=== PATIENT | female | born 1935 | race Caucasian/White ===

== ENCOUNTER → 2016-06-20 | Outpatient (CLI) | payer OTHER | END | disposition home or self-care (01) | LOC: CFH 15:25 | PROVIDERS: ATTEND Internal Medicine | DX: I35.0 Nonrheumatic aortic (valve) stenosis (principal); I07.1 Rheumatic tricuspid insufficiency; I34.0 Nonrheumatic mitral (valve) insufficiency; I37.1 Nonrheumatic pulmonary valve insufficiency; I35.1 Nonrheumatic aortic (valve) insufficiency; I10 Essential (primary) hypertension; E11.9 Type 2 diabetes mellitus without complications | CPT/HCPCS: 93306 ==

== ENCOUNTER 2017-03-25 09:11 | Inpatient (IN) | payer OTHER ==
[~2017-03-25] VITALS: Ht 157.5 cm; Wt 70.2 kg
[2017-03-25] MEDS ORDERED: SODIUM CHLORIDE FLUSH 10ML SYR IVF ONE (10:30)
[2017-03-25] MEDS ORDERED: methylPREDNISolone SOD SUCC 125 MG/2 ML IVP ONE (10:30)
[2017-03-25 10:39] LABS: BASOPHILS # (AUTO) 0.02 x10^3/uL (0-0.1); BASOPHILS % (AUTO) 0 % (0-1); EOSINOPHILS # (AUTO) 0.11 x10^3/uL (0-0.4); EOSINOPHILS % (AUTO) 2 % (1-7); LYMPHOCYTES % (AUTO) 25 % (22-44); MD NO; MEAN CORPUSCULAR HEMOGLOBIN 28.9 pg (27.0-34.8); MEAN CORPUSCULAR HGB CONC 32.8 g/dL (32.4-35.8); MEAN CORPUSCULAR VOLUME 88.3 fL (80-100); MONOCYTES # (AUTO) 0.51 x10^3/uL (0.2-0.8); MONOCYTES % (AUTO) 8 % (2-9); NEUTROPHILS # (AUTO) 4.29 x10^3/uL (1.8-6.8); NEUTROPHILS % (AUTO) 66 % (42-75); PLATELET COUNT 270 x10^3/uL (130-400); RED BLOOD COUNT 3.88 x10^6/uL (3.82-5.3); RED CELL DISTRIBUTION WIDTH 13.1 % (9.6-15.2)
[2017-03-25] MEDS ORDERED: methylPREDNISolone SOD SUCC 125 MG/2 ML ONE (10:40)
[2017-03-25 10:41] LABS: RAPID INFLUENZA A Negative (Negative); RAPID INFLUENZA B Negative (Negative)
[2017-03-25 10:47] LABS: ALANINE AMINOTRANSFERASE 18 U/L (12-78); ALBUMIN 3.3 g/dL (3.4-5.0); ANION GAP 8 mmol/L (5-15); CALCIUM 8.6 mg/dL (8.5-10.1); CHLORIDE 110 mmol/L (98-107); CREATININE 1.11 mg/dL (0.55-1.02)
[2017-03-25 10:51] LABS: ALKALINE PHOSPHATASE 78 U/L (45-117); BILIRUBIN,TOTAL 0.7 mg/dL (0.2-1.0); TOTAL PROTEIN 6.7 g/dL (6.4-8.2); TROPONIN I 0.035 ng/mL (0.000-0.045)
[2017-03-25] MEDS ORDERED: ALBUTEROL/IPRATROPIUM 2.5MG/0.5MG, 3 ML NPPB ONE (12:00)
[2017-03-25] MEDS ORDERED: ALBUTEROL/IPRATROPIUM 2.5MG/0.5MG, 3 ML ONE (12:08)
[2017-03-25] MEDS ORDERED: POLYETHYLENE GLYCOL 17 GM PACKET PO PRN (14:00)
[2017-03-25] MEDS ORDERED: LABETALOL 5MG/ML, 20ML IVPush PRN (14:00)
[2017-03-25] MEDS ORDERED: ONDANSETRON ODT 4 MG PO PRN (14:00)
[2017-03-25] MEDS ORDERED: ONDANSETRON 2MG/ML, 2ML IVPush PRN (14:00)
[2017-03-25 14:22] LABS: D-DIMER 0.8 ug/mlFEU (0.00-0.52); INTERNATIONAL NORMALIZED RATIO 1.03 (0.93-1.1); PROTHROMBIN TIME 10.7 Seconds (9.6-11.5)
[2017-03-25] MEDS ORDERED: OMNIPAQUE 350 MG/ML, 100ML BOTTLE ONE (14:26)
[2017-03-25 14:29] LABS: FREE T4 (FREE THYROXINE) 1.65 ng/dL (0.76-1.46); TROPONIN I 0.026 ng/mL (0.000-0.045)
[2017-03-25] MEDS ORDERED: ALBUTEROL/IPRATROPIUM 2.5MG/0.5MG, 3 ML NPPB PRN (14:30)
[2017-03-25] MEDS ORDERED: LOSA50TA6 PO (14:41)
[2017-03-25] MEDS ORDERED: METF500T4 PO (14:41)
[2017-03-25] MEDS ORDERED: MULT1TAB9 PO (14:41)
[2017-03-25] MEDS ORDERED: VIT1TABL34 PO (14:41)
[2017-03-25] MEDS ORDERED: CHOL200024 PO (14:41)
[2017-03-25] MEDS ORDERED: PRAV20TA2 PO (14:41)
[2017-03-25] MEDS ORDERED: GLIM4TAB2 PO (14:41)
[2017-03-25] MEDS ORDERED: ENOXAPARIN 40 MG/0.4 ML SQ SCH (16:00)
[2017-03-25] MEDS ORDERED: GUAIFENESIN/DM 200-20MG, 10ML UDC PO PRN (16:00)
[2017-03-25] MEDS ORDERED: DEXTROSE 4 GM TAB.CHEW PO PRN (17:00)
[2017-03-25] MEDS ORDERED: DEXTROSE 50%, 50ML SYRINGE IVPush PRN (17:00)
[2017-03-25] MEDS ORDERED: GLUCAGON 1 MG IM PRN (17:00)
[2017-03-25] MEDS: methylPREDNISolone SOD SUCC 125 MG/2 ML IVPush SCH ×2 (17:21→23:21)
[2017-03-25] MEDS: INSULIN ASPART 100 UNITS/ML, PEN SQ-INSULIN SCH ×2 (17:22→22:17)
[2017-03-25 18:58] LABS: CULTURE INDICATED? NO; MICROSCOPIC NOT IND
[2017-03-25 20:03] LABS: TROPONIN I 0.031 ng/mL (0.000-0.045)
[2017-03-25 20:13] VITALS: BP 114/69
[2017-03-25] MEDS: SODIUM CHLORIDE FLUSH 10ML SYR IVF SCH (22:16)
[2017-03-25] MEDS: PRAVASTATIN 20 MG TABLET PO SCH (22:16)
[2017-03-26 00:01] VITALS: BP 127/69
[2017-03-26 00:07] LABS: HEMOGLOBIN A1C 6.8 % (4.2-6.3)
[2017-03-26] MEDS: methylPREDNISolone SOD SUCC 125 MG/2 ML IVPush SCH ×4 (05:13→23:44)
[2017-03-26 05:46] LABS: BASOPHILS # (AUTO) 0.02 x10^3/uL (0-0.1); BASOPHILS % (AUTO) 0 % (0-1); EOSINOPHILS % (AUTO) 0 % (1-7); LYMPHOCYTES # (AUTO) 0.95 x10^3/uL (1-3.4); LYMPHOCYTES % (AUTO) 13 % (22-44); MD NO; MEAN CORPUSCULAR HEMOGLOBIN 29.7 pg (27.0-34.8); MEAN CORPUSCULAR HGB CONC 33.9 g/dL (32.4-35.8); MEAN CORPUSCULAR VOLUME 87.5 fL (80-100); MEAN PLATELET VOLUME 8.2 fL (7.4-10.4); MONOCYTES % (AUTO) 1 % (2-9); NEUTROPHILS # (AUTO) 6.32 x10^3/uL (1.8-6.8); NEUTROPHILS % (AUTO) 86 % (42-75); PLATELET COUNT 266 x10^3/uL (130-400); RED BLOOD COUNT 3.65 x10^6/uL (3.82-5.3); RED CELL DISTRIBUTION WIDTH 13.1 % (9.6-15.2)
[2017-03-26 05:51] LABS: CHLORIDE 109 mmol/L (98-107)
[2017-03-26 06:00] LABS: ALANINE AMINOTRANSFERASE 16 U/L (12-78); ALBUMIN 3.1 g/dL (3.4-5.0); ALKALINE PHOSPHATASE 74 U/L (45-117); ANION GAP 10 mmol/L (5-15); BILIRUBIN,TOTAL 0.6 mg/dL (0.2-1.0); CALCIUM 8.8 mg/dL (8.5-10.1); CREATININE 1.32 mg/dL (0.55-1.02); TOTAL PROTEIN 6.6 g/dL (6.4-8.2)
[2017-03-26] MEDS: MULTIVITS,STRESS FORMULA 1 TABLET PO SCH (07:50)
[2017-03-26] MEDS: INSULIN ASPART 100 UNITS/ML, PEN SQ-INSULIN SCH ×4 (07:50→20:23)
[2017-03-26] MEDS: SODIUM CHLORIDE FLUSH 10ML SYR IVF SCH ×2 (07:50→20:22)
[2017-03-26] MEDS: SENNA/DOCUSATE TABLET PO SCH (07:50)
[2017-03-26] MEDS: CHOLECALCIFEROL 1,000 UNIT TABLET PO SCH (07:50)
[2017-03-26] MEDS: MULTIVITAMIN 1 TABLET PO SCH (07:50)
[2017-03-26 08:01] VITALS: BP 136/75
[2017-03-26] MEDS ORDERED: REGADENOSON 0.4 MG/5 ML SYRINGE ONE (08:52)
[2017-03-26] MEDS ORDERED: LOSARTAN 50MG TABLET PO SCH (09:00)
[2017-03-26] MEDS ORDERED: ALBUTEROL/IPRATROPIUM 2.5MG/0.5MG, 3 ML NPPB PRN (09:30)
[2017-03-26] MEDS: AMLODIPINE 5 MG TABLET PO SCH (09:30)
[2017-03-26 14:00] VITALS: BP 96/52
[2017-03-26] MEDS: ENOXAPARIN 30 MG/0.3 ML SQ SCH (17:00)
[2017-03-26 19:36] VITALS: BP 102/56
[2017-03-26] MEDS: PRAVASTATIN 20 MG TABLET PO SCH (20:22)
[2017-03-27 01:50] VITALS: BP 129/76
[2017-03-27] MEDS: methylPREDNISolone SOD SUCC 125 MG/2 ML IVPush SCH ×2 (05:43→12:22)
[2017-03-27 07:45] VITALS: BP 131/68
[2017-03-27] MEDS: INSULIN ASPART 100 UNITS/ML, PEN SQ-INSULIN SCH ×4 (07:59→21:00)
[2017-03-27] MEDS: CHOLECALCIFEROL 1,000 UNIT TABLET PO SCH (08:00)
[2017-03-27] MEDS: SODIUM CHLORIDE FLUSH 10ML SYR IVF SCH ×2 (08:00→20:59)
[2017-03-27] MEDS: MULTIVITAMIN 1 TABLET PO SCH (08:00)
[2017-03-27] MEDS: AMLODIPINE 5 MG TABLET PO SCH (08:00)
[2017-03-27] MEDS: MULTIVITS,STRESS FORMULA 1 TABLET PO SCH (08:00)
[2017-03-27] MEDS: SENNA/DOCUSATE TABLET PO SCH (08:00)
[2017-03-27 13:35] VITALS: BP 115/55
[2017-03-27 16:33] LABS: FOLATE LEVEL > 20.0 ng/mL (3.1-17.5)
[2017-03-27] MEDS: ENOXAPARIN 30 MG/0.3 ML SQ SCH (17:00)
[2017-03-27 20:05] VITALS: BP 125/77
[2017-03-27] MEDS: PRAVASTATIN 20 MG TABLET PO SCH (20:59)
[2017-03-28 02:28] VITALS: BP 149/75
[2017-03-28 06:02] LABS: BASOPHILS % (AUTO) 0 % (0-1); EOSINOPHILS % (AUTO) 0 % (1-7); LYMPHOCYTES % (AUTO) 10 % (22-44); MD NO; MEAN CORPUSCULAR HEMOGLOBIN 29.5 pg (27.0-34.8); MEAN CORPUSCULAR HGB CONC 33.3 g/dL (32.4-35.8); MEAN CORPUSCULAR VOLUME 88.6 fL (80-100); MEAN PLATELET VOLUME 8.3 fL (7.4-10.4); MONOCYTES # (AUTO) 0.51 x10^3/uL (0.2-0.8); MONOCYTES % (AUTO) 4 % (2-9); NEUTROPHILS % (AUTO) 85 % (42-75); PLATELET COUNT 313 x10^3/uL (130-400); RED CELL DISTRIBUTION WIDTH 13.3 % (9.6-15.2)
[2017-03-28 06:12] LABS: ANION GAP 9 mmol/L (5-15); CALCIUM 8.6 mg/dL (8.5-10.1); CHLORIDE 109 mmol/L (98-107); CREATININE 1.14 mg/dL (0.55-1.02)
[2017-03-28 06:54] VITALS: BP 136/69
[2017-03-28] MEDS: MULTIVITAMIN 1 TABLET PO SCH (07:43)
[2017-03-28] MEDS: SENNA/DOCUSATE TABLET PO SCH (07:43)
[2017-03-28] MEDS: CHOLECALCIFEROL 1,000 UNIT TABLET PO SCH (07:43)
[2017-03-28] MEDS: MULTIVITS,STRESS FORMULA 1 TABLET PO SCH (07:43)
[2017-03-28] MEDS: AMLODIPINE 5 MG TABLET PO SCH (07:43)
[2017-03-28] MEDS: SODIUM CHLORIDE FLUSH 10ML SYR IVF SCH (07:44)
[2017-03-28] MEDS: INSULIN ASPART 100 UNITS/ML, PEN SQ-INSULIN SCH (07:46)
[2017-03-28] MEDS ORDERED: BUDE10.2 INH (07:54)
[2017-03-28] MEDS ORDERED: TIOT18CA INH (07:54)
[2017-03-28] MEDS ORDERED: PRED20TA PO (07:54)
[2017-03-28] MEDS ORDERED: ALBU8.5H8 INH (08:00)
[2017-03-28] MEDS ORDERED: LISI-167 PO (08:01)
== END 2017-03-28 09:06 | disposition home or self-care (01) | DRG 682 ==
LOC: ED 11:38 → EDIP 13:14 → 4EST 15:00 → DCLOUNGE 03-28 09:01
PROVIDERS: ADMIT Internal Medicine; ATTEND Internal Medicine
DX: I12.9 Hypertensive chronic kidney disease with stage 1 through stage 4 chronic kidney disease, or unspecified chronic kidney disease (principal); J96.01 Acute respiratory failure with hypoxia; J44.1 Chronic obstructive pulmonary disease with (acute) exacerbation; E11.22 Type 2 diabetes mellitus with diabetic chronic kidney disease; D64.9 Anemia, unspecified; E78.5 Hyperlipidemia, unspecified; I20.8 Other forms of angina pectoris; J98.01 Acute bronchospasm; K80.20 Calculus of gallbladder without cholecystitis without obstruction; N18.3 Chronic kidney disease, stage 3 (moderate); Z66 Do not resuscitate; Z87.891 Personal history of nicotine dependence
CPT/HCPCS: 36415; 71045; 71275; 78452; 80048; 80053; 81003; 82607; 82746; 82962; 83036; 83735; 83880; 84439; 84443; 84484; 85025; 85379; 85610; 87040; 87400; 93005; 93017; 93306; 94640; 96374; J1650; J1815; J2785; J7620; Q9967; A9502; C9898; J2930; J7512

== ENCOUNTER → 2017-05-01 | Outpatient (CLI) | payer OTHER ==
[~2017-05-01] MED LIST: ALBU8.5H8 INH; ALBU8.5H8 PO; ASPI-621 PO; BUDE10.2 INH; BUDE10.2 PO; CHOL200024 PO; EZET10TA18 PO; GLIM4TAB2 PO; LISI-167 PO; LOSA50TA6 PO; METF500T4 PO; MULT1TAB9 PO; PRAV20TA2 PO; PRAV40TA PO; PRED20TA PO; TIOT18CA INH; VIT1TABL34 PO
[2017-05-01 11:12] LABS: BASOPHILS # (AUTO) 0.06 x10^3/uL (0-0.1); BASOPHILS % (AUTO) 1 % (0-1); EOSINOPHILS # (AUTO) 0.15 x10^3/uL (0-0.4); EOSINOPHILS % (AUTO) 2 % (1-7); LYMPHOCYTES # (AUTO) 1.48 x10^3/uL (1-3.4); LYMPHOCYTES % (AUTO) 20 % (22-44); MD NO; MEAN CORPUSCULAR HEMOGLOBIN 29.2 pg (27.0-34.8); MEAN CORPUSCULAR HGB CONC 33.3 g/dL (32.4-35.8); MEAN CORPUSCULAR VOLUME 87.7 fL (80-100); MEAN PLATELET VOLUME 7.7 fL (7.4-10.4); MONOCYTES # (AUTO) 0.49 x10^3/uL (0.2-0.8); MONOCYTES % (AUTO) 7 % (2-9); NEUTROPHILS # (AUTO) 5.14 x10^3/uL (1.8-6.8); NEUTROPHILS % (AUTO) 70 % (42-75); PLATELET COUNT 416 x10^3/uL (130-400); RED BLOOD COUNT 3.77 x10^6/uL (3.82-5.3); RED CELL DISTRIBUTION WIDTH 14.8 % (9.6-15.2)
[2017-05-01 11:22] LABS: ANION GAP 8 mmol/L (5-15); CALCIUM 8.7 mg/dL (8.5-10.1); CHLORIDE 108 mmol/L (98-107); CREATININE 1.22 mg/dL (0.55-1.02)
== END | disposition home or self-care (01) ==
LOC: STAR 10:12
PROVIDERS: ATTEND Internal Medicine Cardiovascular Disease
DX: Z01.818 Encounter for other preprocedural examination (principal); I35.0 Nonrheumatic aortic (valve) stenosis
CPT/HCPCS: 36415; 80048; 85025

== ENCOUNTER 2017-05-05 06:25 | Day surgery (SDC) | payer OTHER ==
[2017-05-01 11:05] VITALS: BP 147/80
[~2017-05-05] VITALS: Ht 157.5 cm; Wt 68.2 kg
[~2017-05-05 06:25] MED LIST changes: -ASPI-621 PO
[2017-05-05] MEDS ORDERED: ASPI-621 PO (06:47)
[2017-05-05] MEDS ORDERED: MIDAZOLAM 1 MG/ML, 2ML ONE (07:32)
[2017-05-05] MEDS ORDERED: FENTANYL PF 100 MCG/2ML ONE (07:32)
[2017-05-05] MEDS ORDERED: LIDOCAINE 2%, 20ML ONE (07:32)
[2017-05-05] MEDS ORDERED: ONDANSETRON 2MG/ML, 2ML ONE (08:50)
== END 2017-05-05 12:07 ==
LOC: CACL 06:25
PROVIDERS: ATTEND Internal Medicine Cardiovascular Disease
DX: I35.0 Nonrheumatic aortic (valve) stenosis (principal); E11.22 Type 2 diabetes mellitus with diabetic chronic kidney disease; I12.9 Hypertensive chronic kidney disease with stage 1 through stage 4 chronic kidney disease, or unspecified chronic kidney disease; N18.9 Chronic kidney disease, unspecified; E78.2 Mixed hyperlipidemia; J44.9 Chronic obstructive pulmonary disease, unspecified
CPT/HCPCS: 75625; 93454; 99156; C1760; C1894; J2250; J2405; J3010; J3490; Q9967

== ENCOUNTER → 2017-05-18 | Outpatient (CLI) | payer OTHER ==
[~2017-05-18] MED LIST changes: +ASPI-621 PO; +METOPROLOL 1 MG/ML, 5ML ONE; +OMNIPAQUE 350 MG/ML, 150 ML BOTTLE ONE
== END | disposition home or self-care (01) ==
LOC: CVU 11:25
PROVIDERS: ATTEND Internal Medicine Cardiovascular Disease
DX: I65.23 Occlusion and stenosis of bilateral carotid arteries (principal); K44.9 Diaphragmatic hernia without obstruction or gangrene; I77.72 Dissection of iliac artery; K80.20 Calculus of gallbladder without cholecystitis without obstruction; K76.89 Other specified diseases of liver; I10 Essential (primary) hypertension; E78.5 Hyperlipidemia, unspecified; E11.9 Type 2 diabetes mellitus without complications
CPT/HCPCS: 71275; 74174; 93880; 94060; 94726; 94729; Q9967

== ENCOUNTER 2017-05-23 09:43 | Inpatient (IN) | payer OTHER ==
[~2017-05-23] VITALS: Ht 152.4 cm; Wt 68.8 kg
[~2017-05-23 09:43] MED LIST changes: +METOPROLOL 1 MG/ML, 5ML IVPush ONE; -METOPROLOL 1 MG/ML, 5ML ONE; -OMNIPAQUE 350 MG/ML, 150 ML BOTTLE ONE
[2017-05-23] MEDS ORDERED: SODIUM CHLORIDE 0.9% 1,000 ML IV ONE (10:12)
[2017-05-23 10:22] VITALS: BP 144/66
[2017-05-23] MEDS ORDERED: ONDANSETRON 2MG/ML, 2ML IVPush PRN (10:30)
[2017-05-23] MEDS ORDERED: PLEASE ENTER HEIGHT AND WEIGHT MC SCH (10:30)
[2017-05-23] MEDS ORDERED: CHLORHEXIDINE GLUCONATE MOUTHWASH 0.12%, 473ML MM PRN (10:30)
[2017-05-23 10:39] LABS: BASOPHILS # (AUTO) 0.06 x10^3/uL (0-0.1); BASOPHILS % (AUTO) 1 % (0-1); EOSINOPHILS # (AUTO) 0.28 x10^3/uL (0-0.4); EOSINOPHILS % (AUTO) 4 % (1-7); LYMPHOCYTES % (AUTO) 22 % (22-44); MD NO; MEAN CORPUSCULAR HEMOGLOBIN 29.6 pg (27.0-34.8); MEAN CORPUSCULAR HGB CONC 33.8 g/dL (32.4-35.8); MEAN CORPUSCULAR VOLUME 87.5 fL (80-100); MEAN PLATELET VOLUME 7.8 fL (7.4-10.4); MONOCYTES # (AUTO) 0.53 x10^3/uL (0.2-0.8); MONOCYTES % (AUTO) 7 % (2-9); NEUTROPHILS # (AUTO) 5.37 x10^3/uL (1.8-6.8); NEUTROPHILS % (AUTO) 67 % (42-75); PLATELET COUNT 290 x10^3/uL (130-400); RED BLOOD COUNT 3.66 x10^6/uL (3.82-5.3); RED CELL DISTRIBUTION WIDTH 14.3 % (9.6-15.2)
[2017-05-23 10:48] LABS: INTERNATIONAL NORMALIZED RATIO 0.99 (0.93-1.1); PROTHROMBIN TIME 10.3 Seconds (9.6-11.5)
[2017-05-23 10:52] LABS: ALANINE AMINOTRANSFERASE 13 U/L (12-78); ALBUMIN 3.4 g/dL (3.4-5.0); ANION GAP 13 mmol/L (5-15); CALCIUM 8.7 mg/dL (8.5-10.1); CHLORIDE 106 mmol/L (98-107); CREATININE 1.14 mg/dL (0.55-1.02)
[2017-05-23] MEDS ORDERED: FENTANYL PF 250 MCG/5ML ONE (10:55)
[2017-05-23 10:56] LABS: ALKALINE PHOSPHATASE 79 U/L (45-117); BILIRUBIN,TOTAL 0.6 mg/dL (0.2-1.0); TOTAL PROTEIN 6.9 g/dL (6.4-8.2)
[2017-05-23] MEDS ORDERED: LIDOCAINE 2%, 20ML ONE (11:00)
[2017-05-23] MEDS ORDERED: PROTAMINE SULFATE 10 MG/ML, 5ML ONE (11:00)
[2017-05-23] MEDS ORDERED: HEPARIN 1,000 UNITS/ML, 10ML ONE (11:00)
[2017-05-23] MEDS ORDERED: ROCURONIUM 10 MG/ML,10ML ONE (11:10)
[2017-05-23] MEDS ORDERED: CEFAZOLIN 1,000 MG ONE (11:10)
[2017-05-23] MEDS ORDERED: SODIUM CHLORIDE 0.9% 1,000 ML IV SCH (12:21)
[2017-05-23] MEDS ORDERED: DEXTROSE 4 GM TAB.CHEW PO PRN (12:30)
[2017-05-23] MEDS ORDERED: HYDROcodone/APAP 5/325 TABLET PO PRN (12:30)
[2017-05-23] MEDS ORDERED: ACETAMINOPHEN 325 MG TABLET PO PRN (12:30)
[2017-05-23] MEDS ORDERED: DEXTROSE 50%, 50ML SYRINGE IVPush PRN (12:30)
[2017-05-23] MEDS ORDERED: GLUCAGON 1 MG IM PRN (12:30)
[2017-05-23] MEDS ORDERED: ALBUTEROL SULFATE 2.5 MG/3 ML HHN SCH (12:30)
[2017-05-23] MEDS ORDERED: LABETALOL 5MG/ML, 20ML ONE (12:46)
[2017-05-23] MEDS ORDERED: ONDANSETRON 2MG/ML, 2ML ONE (12:58)
[2017-05-23] MEDS ORDERED: DEXAMETHASONE 4 MG/ML, 1ML ONE (12:58)
[2017-05-23] MEDS ORDERED: PROPOFOL 10 MG/ML, 20ML ONE (12:58)
[2017-05-23] MEDS ORDERED: SUCCINYLCHOLINE 20 MG/ML, 10ML ONE (12:58)
[2017-05-23] MEDS ORDERED: hydrALAzine 20 MG/ML, 1ML ONE (13:38)
[2017-05-23] MEDS ORDERED: LABETALOL 5MG/ML, 20ML IVPush PRN (14:00)
[2017-05-23] MEDS ORDERED: PROCHLORPERAZINE 5 MG/ML, 2ML IM PRN (14:00)
[2017-05-23] MEDS ORDERED: hydrALAzine 20 MG/ML, 1ML IVPush PRN (14:00)
[2017-05-23] MEDS ORDERED: LABETALOL 20 MG/4 ML IVPush PRN (14:00)
[2017-05-23 16:49] VITALS: BP 132/68
[2017-05-23 20:00] VITALS: BP 140/59
[2017-05-23] MEDS: SODIUM CHLORIDE FLUSH 10ML SYR IVF SCH (20:36)
[2017-05-24 02:54] VITALS: BP 115/59
[2017-05-24 05:00] LABS: BASOPHILS # (AUTO) 0.05 x10^3/uL (0-0.1); BASOPHILS % (AUTO) 1 % (0-1); EOSINOPHILS % (AUTO) 1 % (1-7); LYMPHOCYTES # (AUTO) 1.92 x10^3/uL (1-3.4); LYMPHOCYTES % (AUTO) 21 % (22-44); MD NO; MEAN CORPUSCULAR HEMOGLOBIN 28.8 pg (27.0-34.8); MEAN CORPUSCULAR HGB CONC 33.2 g/dL (32.4-35.8); MEAN CORPUSCULAR VOLUME 86.8 fL (80-100); MEAN PLATELET VOLUME 8.1 fL (7.4-10.4); MONOCYTES # (AUTO) 0.68 x10^3/uL (0.2-0.8); MONOCYTES % (AUTO) 7 % (2-9); NEUTROPHILS # (AUTO) 6.39 x10^3/uL (1.8-6.8); NEUTROPHILS % (AUTO) 70 % (42-75); PLATELET COUNT 241 x10^3/uL (130-400); RED BLOOD COUNT 3.34 x10^6/uL (3.82-5.3); RED CELL DISTRIBUTION WIDTH 14.1 % (9.6-15.2)
[2017-05-24 05:07] LABS: ALBUMIN 2.9 g/dL (3.4-5.0); ANION GAP 7 mmol/L (5-15); CALCIUM 8.6 mg/dL (8.5-10.1); CHLORIDE 107 mmol/L (98-107); CREATININE 1.08 mg/dL (0.55-1.02)
[2017-05-24 08:00] VITALS: BP 115/44
[2017-05-24] MEDS ORDERED: ASPIRIN 81 MG TABLET EC PO SCH (09:00)
[2017-05-24 09:12] VITALS: BP 103/58
[2017-05-24] MEDS: CLOPIDOGREL 75 MG TABLET PO SCH (09:15)
[2017-05-24] MEDS: SODIUM CHLORIDE FLUSH 10ML SYR IVF SCH ×2 (09:15→20:54)
[2017-05-24] MEDS: ASPIRIN 81 MG TABLET EC PO SCH (09:15)
[2017-05-24 10:00] VITALS: BP 103/35
[2017-05-24 14:06] VITALS: BP 105/81
[2017-05-24 18:38] VITALS: BP 135/72
[2017-05-25 00:47] VITALS: BP 146/67
[2017-05-25 07:57] VITALS: BP 149/78
[2017-05-25] MEDS: ASPIRIN 81 MG TABLET EC PO SCH (08:27)
[2017-05-25] MEDS: CLOPIDOGREL 75 MG TABLET PO SCH (08:27)
[2017-05-25] MEDS: SODIUM CHLORIDE FLUSH 10ML SYR IVF SCH (09:00)
[2017-05-25] MEDS ORDERED: CLOP75TA PO (11:10)
== END 2017-05-25 12:13 | disposition home or self-care (01) | DRG 266 ==
LOC: ORIP 09:43 → CCU 12:36 → 5SO 05-24 17:31
PROVIDERS: ADMIT Internal Medicine Cardiovascular Disease; ATTEND Internal Medicine Cardiovascular Disease
PROC: 02RF38Z Replacement of Aortic Valve with Zooplastic Tissue, Percutaneous Approach (ICD-10-PCS; principal; 2017-05-23 12:00)
DX: I35.0 Nonrheumatic aortic (valve) stenosis (principal); Z00.6 Encounter for examination for normal comparison and control in clinical research program; I50.33 Acute on chronic diastolic (congestive) heart failure; E46 Unspecified protein-calorie malnutrition; E11.22 Type 2 diabetes mellitus with diabetic chronic kidney disease; I50.32 Chronic diastolic (congestive) heart failure; I13.0 Hypertensive heart and chronic kidney disease with heart failure and stage 1 through stage 4 chronic kidney disease, or unspecified chronic kidney disease; I11.0 Hypertensive heart disease with heart failure; D64.9 Anemia, unspecified; E78.5 Hyperlipidemia, unspecified; J44.9 Chronic obstructive pulmonary disease, unspecified; N18.3 Chronic kidney disease, stage 3 (moderate); Z87.891 Personal history of nicotine dependence; Z68.29 Body mass index [BMI] 29.0-29.9, adult
CPT/HCPCS: 33361; 36415; 80048; 80053; 82040; 83880; 85025; 85347; 85610; 85730; 86850; 86900; 86923; 87081; 93005; 93306; 93312; 93321; 93325; 93355; 93591; C1760; C1769; C1894; J0690; J1100; J1644; J2405; J2704; J2720; J3010; J3490; J0330; J0360; J7030; Q9967

== ENCOUNTER → 2017-06-20 | Outpatient (CLI) | payer OTHER ==
[~2017-06-20] MED LIST changes: +CLOP75TA PO; -METOPROLOL 1 MG/ML, 5ML IVPush ONE
== END | disposition home or self-care (01) ==
LOC: CVU 13:35
PROVIDERS: ATTEND Internal Medicine Cardiovascular Disease
DX: I25.3 Aneurysm of heart (principal); I10 Essential (primary) hypertension; Z95.2 Presence of prosthetic heart valve; E11.9 Type 2 diabetes mellitus without complications
CPT/HCPCS: 93306

== ENCOUNTER → 2017-12-04 | Outpatient (CLI) | payer OTHER ==
[~2017-12-04] MED LIST changes: -LOSA50TA6 PO; +LOSA50TA7 PO; +METF500T17 PO; -METF500T4 PO
== END | disposition home or self-care (01) ==
LOC: CFH 13:11
PROVIDERS: ATTEND Internal Medicine Cardiovascular Disease
DX: I35.0 Nonrheumatic aortic (valve) stenosis (principal); I11.0 Hypertensive heart disease with heart failure; I50.9 Heart failure, unspecified; E11.9 Type 2 diabetes mellitus without complications; E78.5 Hyperlipidemia, unspecified; Z95.2 Presence of prosthetic heart valve
CPT/HCPCS: 93306

== ENCOUNTER → 2018-05-24 | Outpatient (CLI) | payer MEDICARE ==
[~2018-05-24] MED LIST changes: -ASPI-621 PO; +ASPI81TA45 PO; +LOSA50TA14 PO; -LOSA50TA7 PO
== END | disposition home or self-care (01) ==
LOC: CVU 10:39
PROVIDERS: ATTEND Internal Medicine Cardiovascular Disease
DX: I35.0 Nonrheumatic aortic (valve) stenosis (principal); Q21.1 Atrial septal defect; Q24.8 Other specified congenital malformations of heart; I10 Essential (primary) hypertension; E78.5 Hyperlipidemia, unspecified; E11.9 Type 2 diabetes mellitus without complications; Z87.891 Personal history of nicotine dependence
CPT/HCPCS: 93306

== ENCOUNTER 2020-11-20 09:23 | Inpatient (IN) | payer MEDICARE ==
[2020-11-20] VITALS (10 sets, daily range): BP systolic 119–181; BP diastolic 50–72
[~2020-11-20] VITALS: Ht 160 cm; Wt 61.9 kg
[~2020-11-20 09:23] MED LIST changes: -EZET10TA18 PO; +EZET10TA70 PO; -GLIM4TAB2 PO; +GLIM4TAB8 PO
--- NOTE | 2020-11-20 09:36 | NUR ---
PT BIB EMS TODAY FOR MGLF AT HOME. PER PT, PT TRIPPED AND FELL AND SUSTAINED A LEFT HIP INJURY. PT ARRIVES TO [facility] ED WITH SHORTENED AND EXTERNALLY ROTATED LEFT LEG. LEFT LEG PEDAL PULSES AND DISTAL CMS INTACT. PT EDUCATED ON ER PROCESS AND POC AND VERBALIZES UNDERSTANDING. PT ATTACHED TO VS MONITORS. VSS AT THIS TIME. PT HAS CALL LIGHT WITHIN REACH AND DENIES ANY OTHER NEEDS AT THIS TIME.
[2020-11-20] MEDS ORDERED: DIPH,PERTUSS(ACELL),TET VAC/PF 0.5 ML IM-VACC ONE ×2 (10:00→10:33)
--- NOTE | 2020-11-20 10:21 | NUR ---
LAB AT BS AT THIS TIME.
[2020-11-20 10:29] LABS: BASOPHILS % (AUTO) 2 % (0-1); EOSINOPHILS % (AUTO) 2 % (1-7); LYMPHOCYTES % (AUTO) 15 % (22-44); MEAN CORPUSCULAR HEMOGLOBIN 15.9 pg (27.0-34.8); MEAN PLATELET VOLUME 8.4 fL (7.4-10.4); MONOCYTES % (AUTO) 6 % (2-9); NEUTROPHILS % (AUTO) 75 % (42-75); PLATELET COUNT 345 x10^3/uL (130-400); RED BLOOD COUNT 2.25 x10^6/uL (3.82-5.3); RED CELL DISTRIBUTION WIDTH 19.5 % (9.6-15.2)
[2020-11-20 10:37] LABS: ALBUMIN 2.9 g/dL (3.4-5.0); ANION GAP 8 mmol/L (5-15); CALCIUM 8.4 mg/dL (8.5-10.1); CHLORIDE 113 mmol/L (98-107); CREATININE 1.18 mg/dL (0.55-1.02)
--- NOTE | 2020-11-20 10:37 | NUR ---
PT TO [facility]IA [employer] AT THIS TIME.
[2020-11-20 10:43] LABS: MEAN CORPUSCULAR HGB CONC 28.6 g/dL (32.4-35.8)
[2020-11-20 11:08] LABS: ANISOCYTOSIS 2+; HYPOCHROMIA 3+; MICROCYTOSIS 2+
[2020-11-20 11:10] LABS: <PLATELET ESTIMATE> ADEQUATE; <PLT MORPHOLOGY> NORMAL PLT MORPH; STOMATOCYTES 1+
[2020-11-20 11:11] LABS: TEAR DROPS 1+
--- NOTE | 2020-11-20 11:15 | NUR ---
PT VSS AND UPDATED IN EMR. PT VACCINATED WITH TDAP AT THIS TIME.
--- NOTE | 2020-11-20 12:02 | NUR ---
REPORT OF PT TO OSM[facility] JO. ALL QUESTIONS ANSWERED. PT AND FAMILY UPDATED ON ROOM ASSIGNMENT AND PT DISPOSITION.
[2020-11-20] MEDS ORDERED: MORPHINE SULFATE 4 MG/ML, 1ML ONE (12:59)
[2020-11-20] MEDS ORDERED: ONDANSETRON 2MG/ML, 2ML IVPush PRN ×2 (13:00→16:30)
[2020-11-20] MEDS: MORPHINE SULFATE 4 MG/ML, 1ML IVPush PRN ×2 (13:05→16:19)
[2020-11-20 15:59] LABS: BASOPHILS % (AUTO) 1 % (0-1); EOSINOPHILS % (AUTO) 0 % (1-7); LYMPHOCYTES % (AUTO) 11 % (22-44); MEAN PLATELET VOLUME 8.4 fL (7.4-10.4); MONOCYTES % (AUTO) 6 % (2-9); NEUTROPHILS % (AUTO) 81 % (42-75); PLATELET COUNT 325 x10^3/uL (130-400); RED BLOOD COUNT 2.87 x10^6/uL (3.82-5.3); RED CELL DISTRIBUTION WIDTH 30.2 % (9.6-15.2)
[2020-11-20] MEDS ORDERED: hydrALAzine 20 MG/ML, 1ML IVPush PRN (16:30)
[2020-11-20] MEDS ORDERED: ONDANSETRON ODT 4 MG PO PRN (16:30)
[2020-11-20] MEDS ORDERED: BISACODYL 10 MG SUPP PR PRN (16:30)
[2020-11-20] MEDS ORDERED: MELATONIN 5 MG TABLET PO PRN (16:30)
[2020-11-20] MEDS ORDERED: BACLOFEN 10 MG TABLET PO PRN (16:30)
[2020-11-20 16:32] LABS: MEAN CORPUSCULAR HGB CONC 29.7 g/dL (32.4-35.8)
[2020-11-20 16:38] LABS: <PLATELET ESTIMATE> ADEQUATE; <PLT MORPHOLOGY> NORMAL PLT MORPH; ANISOCYTOSIS 2+; MICROCYTOSIS 2+
[2020-11-20 16:39] LABS: HYPOCHROMIA 2+; STOMATOCYTES 1+
[2020-11-20 17:00] LABS: FREE T4 (FREE THYROXINE) 1.12 ng/dL (0.76-1.46)
[2020-11-20 18:39] LABS: ANION GAP 7 mmol/L (5-15); CALCIUM 7.6 mg/dL (8.5-10.1); CHLORIDE 114 mmol/L (98-107)
[2020-11-20 18:40] LABS: CREATININE 0.99 mg/dL (0.55-1.02)
[2020-11-20 19:33] LABS: BASOPHILS % (AUTO) 1 % (0-1); EOSINOPHILS % (AUTO) 1 % (1-7); LYMPHOCYTES % (AUTO) 8 % (22-44); MEAN CORPUSCULAR HEMOGLOBIN 23.3 pg (27.0-34.8); MEAN CORPUSCULAR HGB CONC 32.2 g/dL (32.4-35.8); MEAN PLATELET VOLUME 8.6 fL (7.4-10.4); MONOCYTES % (AUTO) 6 % (2-9); NEUTROPHILS % (AUTO) 84 % (42-75); PLATELET COUNT 262 x10^3/uL (130-400); RED BLOOD COUNT 3.85 x10^6/uL (3.82-5.3); RED CELL DISTRIBUTION WIDTH 29.8 % (9.6-15.2)
[2020-11-20 20:00] LABS: <PLATELET ESTIMATE> ADEQUATE; <PLT MORPHOLOGY> NORMAL PLT MORPH
[2020-11-20 20:01] LABS: ANISOCYTOSIS 2+
[2020-11-20 20:03] LABS: HYPOCHROMIA 1+; MICROCYTOSIS 2+; OVALOCYTES 1+
[2020-11-20 20:04] LABS: STOMATOCYTES 1+
[2020-11-20] MEDS: LACTATED RINGERS 1,000 ML IV SCH (20:21)
[2020-11-20] MEDS: INSULIN LISPRO 100 UNITS/ML, PEN SQ-INSULIN SCH (21:31)
[2020-11-20] MEDS: HYDROcodone/APAP 5/325 TABLET PO PRN (22:31)
[2020-11-21 00:38] VITALS: BP 138/50
[2020-11-21] MEDS: MORPHINE SULFATE 4 MG/ML, 1ML IVPush PRN (02:33)
[2020-11-21 05:50] LABS: BASOPHILS % (AUTO) 1 % (0-1); EOSINOPHILS % (AUTO) 0 % (1-7); LYMPHOCYTES % (AUTO) 12 % (22-44); MEAN CORPUSCULAR HEMOGLOBIN 23.2 pg (27.0-34.8); MEAN CORPUSCULAR HGB CONC 32.7 g/dL (32.4-35.8); MEAN PLATELET VOLUME 8.9 fL (7.4-10.4); MONOCYTES % (AUTO) 7 % (2-9); NEUTROPHILS % (AUTO) 81 % (42-75); PLATELET COUNT 257 x10^3/uL (130-400); RED BLOOD COUNT 3.67 x10^6/uL (3.82-5.3); RED CELL DISTRIBUTION WIDTH 29.7 % (9.6-15.2)
[2020-11-21 05:54] LABS: HCT (SEDRATE) 26.2 % (34.6-47.8)
[2020-11-21 06:12] LABS: CHLORIDE 113 mmol/L (98-107)
[2020-11-21 06:23] LABS: ALANINE AMINOTRANSFERASE 10 U/L (12-78); ALBUMIN 2.6 g/dL (3.4-5.0); ALKALINE PHOSPHATASE 56 U/L (45-117); BILIRUBIN,TOTAL 1.3 mg/dL (0.2-1.0); CHOL/HDL RATIO 2.7; CHOLESTEROL, TOTAL 100 mg/dL (140-239); CREATININE 1.09 mg/dL (0.55-1.02); HDL CHOL % 37 % (28-40); HDL CHOLESTEROL (DIRECT) 37 mg/dL (40-60); LDL CHOLESTEROL,CALCULATED 45 mg/dL (54-169); LDL/HDL RATIO 1.2 (0.5-3.0); TOTAL PROTEIN 5.3 g/dL (6.4-8.2); TRIGLYCERIDES 89 mg/dL (50-200); VLDL CHOLESTEROL 18 mg/dL (0-25)
[2020-11-21 06:41] LABS: ANION GAP 10 mmol/L (5-15)
[2020-11-21] MEDS: INSULIN LISPRO 100 UNITS/ML, PEN SQ-INSULIN SCH ×4 (07:00→21:00)
[2020-11-21] MEDS: PANTOPRAZOLE 40MG TABLET PO SCH (07:30)
[2020-11-21] MEDS: SENNA/DOCUSATE TABLET PO SCH (09:00)
[2020-11-21 11:47] LABS: MICROSCOPIC AUTO
[2020-11-21] MEDS: LACTATED RINGERS 1,000 ML IV SCH (14:17)
[2020-11-21 14:19] VITALS: BP 131/55
[2020-11-21 15:13] VITALS: BP 151/80
[2020-11-21] MEDS ORDERED: HEPARIN 5,000 UNITS/ML, 1ML SQ ONE (18:30)
[2020-11-21 19:43] VITALS: BP 145/56
[2020-11-22 00:06] VITALS: BP_SYST 107; BP_SYST 167; BP_DIAS 62
[2020-11-22 06:14] LABS: BASOPHILS % (AUTO) 1 % (0-1); EOSINOPHILS % (AUTO) 3 % (1-7); LYMPHOCYTES % (AUTO) 16 % (22-44); MEAN CORPUSCULAR HEMOGLOBIN 22.9 pg (27.0-34.8); MEAN CORPUSCULAR HGB CONC 31.9 g/dL (32.4-35.8); MEAN PLATELET VOLUME 8.5 fL (7.4-10.4); MONOCYTES % (AUTO) 9 % (2-9); NEUTROPHILS % (AUTO) 71 % (42-75); PLATELET COUNT 250 x10^3/uL (130-400); RED BLOOD COUNT 3.51 x10^6/uL (3.82-5.3); RED CELL DISTRIBUTION WIDTH 30.2 % (9.6-15.2)
[2020-11-22 06:19] LABS: CHLORIDE 110 mmol/L (98-107)
[2020-11-22 06:28] LABS: ANION GAP 5 mmol/L (5-15); CALCIUM 8.2 mg/dL (8.5-10.1); CREATININE 1.11 mg/dL (0.55-1.02)
[2020-11-22] MEDS: INSULIN LISPRO 100 UNITS/ML, PEN SQ-INSULIN SCH ×4 (07:00→21:06)
[2020-11-22] MEDS: PANTOPRAZOLE 40MG TABLET PO SCH (07:30)
[2020-11-22] MEDS ORDERED: FENTANYL PF 100 MCG/2ML ONE ×2 (07:43→08:36)
[2020-11-22 07:44] VITALS: BP 163/71
[2020-11-22] MEDS ORDERED: ALBUTEROL SULFATE 2.5 MG/3 ML NPPB PRN (08:00)
[2020-11-22] MEDS ORDERED: MEPERIDINE/PF 25MG/0.5ML IVPush PRN (08:00)
[2020-11-22] MEDS ORDERED: HYDROmorphone 1 MG/ML, 1ML INJ IVPush PRN (08:00)
[2020-11-22] MEDS ORDERED: ACETAMINOPHEN 325 MG TABLET PO PRN (08:00)
[2020-11-22] MEDS ORDERED: OXYcodone 5 MG/5 ML ORAL.SOL UDC PO PRN (08:00)
[2020-11-22] MEDS ORDERED: FENTANYL PF 100 MCG/2ML IV PRN (08:00)
[2020-11-22] MEDS ORDERED: MIDAZOLAM 1 MG/ML, 2ML IV PRN (08:00)
[2020-11-22] MEDS ORDERED: PROMETHAZINE 25 MG/ML, 1ML IVPush PRN (08:00)
[2020-11-22] MEDS ORDERED: LABETALOL 5MG/ML, 20ML IV PRN (08:00)
[2020-11-22] MEDS ORDERED: PROPOFOL 10 MG/ML, 20ML ONE (08:28)
[2020-11-22] MEDS ORDERED: DEXAMETHASONE 4 MG/ML, 1ML ONE (08:28)
[2020-11-22] MEDS ORDERED: CEFAZOLIN 1,000 MG ONE (08:28)
[2020-11-22] MEDS ORDERED: ONDANSETRON 2MG/ML, 2ML ONE (08:28)
[2020-11-22] MEDS ORDERED: LIDOCAINE-MPF 2% ,5ML ONE (08:28)
[2020-11-22] MEDS ORDERED: SUCCINYLCHOLINE 20 MG/ML, 10ML ONE (08:31)
[2020-11-22] MEDS: SENNA/DOCUSATE TABLET PO SCH (09:00)
[2020-11-22] MEDS ORDERED: ACETAMINOPHEN 650 MG/20.3 ML UDC ONE (10:06)
[2020-11-22] MEDS ORDERED: CEFAZOLIN 1,000 MG IV SCH (10:30)
[2020-11-22] MEDS ORDERED: CEFAZOLIN PMX 1GM/50ML 50 ML IV SCH (10:30)
[2020-11-22] MEDS: LACTATED RINGERS 1,000 ML IV SCH ×2 (12:51→16:00)
[2020-11-22 14:08] VITALS: BP 122/68
[2020-11-22] MEDS: CEFAZOLIN PMX 1GM/50ML 50 ML IV SCH (16:00)
[2020-11-22 16:15] VITALS: BP 130/67
[2020-11-22 19:27] VITALS: BP 128/65
[2020-11-22] MEDS: ACETAMINOPHEN 325 MG TABLET PO PRN (21:06)
[2020-11-23 00:03] VITALS: BP 115/55
[2020-11-23] MEDS: CEFAZOLIN PMX 1GM/50ML 50 ML IV SCH ×2 (03:58→16:38)
[2020-11-23 04:11] VITALS: BP 118/58
[2020-11-23] MEDS: INSULIN LISPRO 100 UNITS/ML, PEN SQ-INSULIN SCH ×4 (07:00→21:28)
[2020-11-23] MEDS: HYDROcodone/APAP 5/325 TABLET PO PRN ×2 (07:01→11:14)
[2020-11-23] MEDS: PANTOPRAZOLE 40MG TABLET PO SCH (07:30)
[2020-11-23 07:38] VITALS: BP 138/62
[2020-11-23] MEDS: LACTATED RINGERS 1,000 ML IV SCH (09:34)
[2020-11-23] MEDS: POLYETHYLENE GLYCOL 17 GM PACKET PO PRN (11:37)
[2020-11-23] MEDS: SENNA/DOCUSATE TABLET PO SCH (11:37)
[2020-11-23 13:32] VITALS: BP 132/64
[2020-11-23] MEDS: MORPHINE SULFATE 4 MG/ML, 1ML IVPush PRN (14:25)
[2020-11-23 20:02] VITALS: BP 120/62
[2020-11-24] MEDS: HYDROcodone/APAP 5/325 TABLET PO PRN ×2 (01:23→12:41)
[2020-11-24 01:39] VITALS: BP 147/55
[2020-11-24] MEDS: CEFAZOLIN PMX 1GM/50ML 50 ML IV SCH ×2 (03:52→16:06)
[2020-11-24] MEDS: INSULIN LISPRO 100 UNITS/ML, PEN SQ-INSULIN SCH ×4 (07:00→21:00)
[2020-11-24] MEDS: POLYETHYLENE GLYCOL 17 GM PACKET PO PRN (08:11)
[2020-11-24] MEDS: PANTOPRAZOLE 40MG TABLET PO SCH (08:11)
[2020-11-24] MEDS: SENNA/DOCUSATE TABLET PO SCH (08:11)
[2020-11-24 08:26] VITALS: BP 132/58
[2020-11-24] MEDS: LACTATED RINGERS 1,000 ML IV SCH (11:06)
[2020-11-24 13:06] VITALS: BP 128/63
[2020-11-24 18:33] VITALS: BP 160/61
[2020-11-24] MEDS: MULTIVITAMINS WITH IRON TABLET PO SCH (22:07)
[2020-11-25 03:09] VITALS: BP 145/57
[2020-11-25] MEDS: CEFAZOLIN PMX 1GM/50ML 50 ML IV SCH (04:17)
[2020-11-25] MEDS: HYDROcodone/APAP 5/325 TABLET PO PRN ×3 (04:18→21:33)
[2020-11-25] MEDS: INSULIN LISPRO 100 UNITS/ML, PEN SQ-INSULIN SCH ×4 (06:42→21:28)
[2020-11-25 08:00] VITALS: BP 148/64
[2020-11-25] MEDS: LACTATED RINGERS 1,000 ML IV SCH (08:00)
[2020-11-25] MEDS: PANTOPRAZOLE 40MG TABLET PO SCH (08:38)
[2020-11-25] MEDS: MULTIVITAMINS WITH IRON TABLET PO SCH (08:39)
[2020-11-25] MEDS: SENNA/DOCUSATE TABLET PO SCH (08:39)
[2020-11-25] MEDS ORDERED: IRON SUCROSE COMPLEX 100MG/5ML IV SCH (09:00)
[2020-11-25 13:56] VITALS: BP 154/67
[2020-11-25 19:54] VITALS: BP 131/66
[2020-11-26 01:58] VITALS: BP 163/70
[2020-11-26] MEDS: INSULIN LISPRO 100 UNITS/ML, PEN SQ-INSULIN SCH ×4 (07:00→21:22)
[2020-11-26] MEDS: PANTOPRAZOLE 40MG TABLET PO SCH (07:39)
[2020-11-26] MEDS: HYDROcodone/APAP 5/325 TABLET PO PRN ×2 (07:53→14:14)
[2020-11-26 09:32] VITALS: BP 136/67
[2020-11-26] MEDS: SENNA/DOCUSATE TABLET PO SCH (09:41)
[2020-11-26] MEDS: MULTIVITAMINS WITH IRON TABLET PO SCH (09:41)
[2020-11-26] MEDS: GABAPENTIN 300 MG CAPSULE PO PRN (10:35)
[2020-11-26 14:30] VITALS: BP 157/66
[2020-11-26] MEDS ORDERED: ACET325T26 PO (15:15)
[2020-11-26] MEDS ORDERED: HYDR-2214 PO (15:15)
[2020-11-26] MEDS ORDERED: IRON1TAB60 PO (15:15)
[2020-11-26 20:34] VITALS: BP 137/75
[2020-11-27 02:11] VITALS: BP 156/76
[2020-11-27] MEDS: INSULIN LISPRO 100 UNITS/ML, PEN SQ-INSULIN SCH (07:00)
[2020-11-27 07:45] VITALS: BP 154/68
[2020-11-27] MEDS: MULTIVITAMINS WITH IRON TABLET PO SCH (09:00)
[2020-11-27] MEDS: SENNA/DOCUSATE TABLET PO SCH (09:00)
[2020-11-27] MEDS: PANTOPRAZOLE 40MG TABLET PO SCH (09:00)
[2020-11-27] MEDS: ACETAMINOPHEN 325 MG TABLET PO PRN (09:44)
[2020-11-27] MEDS: GABAPENTIN 300 MG CAPSULE PO PRN (09:44)
== END 2020-11-27 11:59 | DRG 480 ==
LOC: ED 11:14 → EDIP 11:40 → 3N 12:15 → 4NE 11-21 15:04
PROVIDERS: ADMIT Internal Medicine; ATTEND Family Medicine
PROC: 30233N1 Transfusion of Nonautologous Red Blood Cells into Peripheral Vein, Percutaneous Approach (ICD-10-PCS; 2020-11-20)
PROC: 0QS706Z Reposition Left Upper Femur with Intramedullary Internal Fixation Device, Open Approach (ICD-10-PCS; principal; 2020-11-22 08:00)
DX: S72.142A Displaced intertrochanteric fracture of left femur, initial encounter for closed fracture (principal); E43 Unspecified severe protein-calorie malnutrition; I13.0 Hypertensive heart and chronic kidney disease with heart failure and stage 1 through stage 4 chronic kidney disease, or unspecified chronic kidney disease; W01.0XXA Fall on same level from slipping, tripping and stumbling without subsequent striking against object, initial encounter; Z20.822 Contact with and (suspected) exposure to COVID-19; D50.9 Iron deficiency anemia, unspecified; E11.22 Type 2 diabetes mellitus with diabetic chronic kidney disease; E55.9 Vitamin D deficiency, unspecified; I50.9 Heart failure, unspecified; N18.2 Chronic kidney disease, stage 2 (mild); Y92.002 Bathroom of unspecified non-institutional (private) residence as the place of occurrence of the external cause; Z79.02 Long term (current) use of antithrombotics/antiplatelets; Z83.3 Family history of diabetes mellitus; Z95.2 Presence of prosthetic heart valve; Y93.89 Activity, other specified; Y99.8 Other external cause status; Z68.24 Body mass index [BMI] 24.0-24.9, adult
CPT/HCPCS: 36415; 71045; 72192; 76000; 80048; 80053; 80061; 81001; 82040; 82607; 82728; 82962; 83036; 83540; 83550; 83735; 84100; 84439; 84443; 85025; 85651; 86850; 86900; 86923; 87635; 90471; 90715; 93005; 93306; 96374; 99291; C1713; G0378; J0690; J1100; J1644; J1756; J2405; J2704; J3010; J0330; J0360; J1815; J2270; J7120; P9016